=== PATIENT | female | born 1980 | race Caucasian/White ===

== ENCOUNTER → 2022-04-01 | Outpatient (CLI) | payer BC | LOC: CT 11:30 | DX: K21.00 Gastro-esophageal reflux disease with esophagitis, without bleeding (principal); K59.00 Constipation, unspecified | CPT/HCPCS: 74160; Q9967 ==

== ENCOUNTER → 2022-05-14 | Outpatient (CLI) | payer BC | LOC: US 09:45 | DX: R10.11 Right upper quadrant pain (principal); K80.20 Calculus of gallbladder without cholecystitis without obstruction | CPT/HCPCS: 76705 ==